=== PATIENT | male | born 1990 | race Hispanic/Latino ===

== ENCOUNTER 2025-06-27 11:24 | Emergency (ER) | payer OTHER ==
--- NOTE | 2025-06-27 11:41 | EDPHYS ---
Physician Documentation [facility] Name: Jassi Hernandez Age: 35 yrs Sex: Male : 1990 Arrival Date: 06/27/2025 Time: 11:24 Bed DIS1 Private MD: ED Physician Mykel Malik HPI: 06/27 12:28 This 35 yrs old Male presents to ER via Ambulatory with complaints of Rash, Eye Problem.kb 12:28 Patient is a 35-year-old male who presents for rash to the face and chest that kb developed overnight. States he was working under a house yesterday and believes he came into contact with something. Son that was working with him under the house has similar rash. Complains of itching.. Historical: - Allergies: 11:39 No Known Allergies; ll1 - PMHx: 11:39 None; ll1 - PSHx: 11:39 None; ll1 - Immunization history:: Adult Immunizations up to date. - Infectious Disease History:: Denies. - Social history:: Smoking status: Patient denies any tobacco usage or history of. ROS: 12:27 Constitutional: As per HPI kb Exam: 12:27 Constitutional: This is a well developed, well nourished patient who is awake, alert, kb and in no acute distress. Head/Face: Normocephalic, atraumatic. ENT: Moist Mucous membranes Cardiovascular: Regular rate Respiratory: Respirations even and unlabored. No increased work of breathing. Talking in full sentences MS/ Extremity: Pulses equal, no cyanosis. Neurovascular intact. Full, normal range of motion. Neuro: Awake and alert, GCS 15, oriented to person, place, time, and situation. 12:27 Skin: rash a moderate rash is noted, consistent with contact dermatitis, on the face and chest, Vital Signs: 11:39 BP 137 / 87; Pulse 66; Resp 16; Temp 97.8; Pulse Ox 100% ; Weight 81.65 kg; Height 5 ll1 ft. 8 in. ; Pain 9/10; 13:10 BP 136 / 84; Pulse 67; Resp 16; Pulse Ox 99% on R/A; db 11:39 Body Mass Index 27.37 (81.65 kg, 172.72 cm) ll1 11:39 Pain Scale: Adult ll1 MDM: 11:31 Medical Screening Exam initiated kb 12:29 Differential diagnosis: impetigo, allergic reaction, parasite infection. Data reviewed: kb vital signs, nurses notes. Historians other than the Patient: Spouse/Significant Other: . Counseling: I had a detailed discussion with the patient and/or guardian regarding the historical points, exam findings, and any diagnostic results supporting the discharge/admit diagnosis, the need for outpatient follow up, a family practitioner, to return to the emergency department if symptoms worsen or persist or if there are any questions or concerns that arise at home. Administered Medications: 12:55 Drug: diphenhydrAMINE PO 25 mg PO once Route: PO; db 13:09 Follow up: Response: No adverse reaction db 13:00 Drug: predniSONE PO 40 mg PO once Route: PO; db 13:09 Follow up: Response: No adverse reaction db 13:00 Drug: Famotidine PO 20 mg PO once Route: PO; db 13:09 Follow up: Response: No adverse reaction db Disposition: 06/28 07:34 Co-signature as Attending Physician, Mykel Malik MD I agree with the assessment and gale plan of care. Disposition Summary: 06/27/25 11:40 Discharge Ordered Notes: Location: Home kb Condition: Stable kb Diagnosis - Allergic contact dermatitis, unspecified cause kb Followup: kb - With: Emergency Department - When: As needed - Reason: Worsening of condition Followup: kb - With: Private Physician - When: 2 - 3 days - Reason: Recheck today's complaints, Continuance of care, Re-evaluation by your physician Discharge Instructions: - Discharge Summary Sheet kb - Contact Dermatitis, [id number] kb Forms: - Medication Reconciliation Form kb - Antibiotic Education kb - Prescription Opioid Use kb - Patient Portal Instructions kb - Leadership Thank You Letter kb Prescriptions: - Pepcid 20 mg Oral Tablet - take 1 tablet ORAL route every 12 hours for 5 days; 10 tablet; Refills: 0, kb Product Selection Permitted - Prednisone 20 mg Oral Tablet - take 1 tablet ORAL route once daily for 5 days; 5 tablet; Refills: 0, Product kb Selection Permitted Signatures: Dari Nash FNP-C FNP-Ckb Anderson, Corey, MD MD cha Lewis, Lynsay RN RN ll1 Blessing Small RN RN db
--- NOTE | 2025-06-27 11:41 | ER ---
Nurse's Notes [facility] Name: Jassi Hernandez Age: 35 yrs Sex: Male : 1990 Arrival Date: 06/27/2025 Time: 11:24 Bed DIS1 Private MD: Diagnosis: Allergic contact dermatitis, unspecified cause Presentation: 06/27 11:39 Chief complaint: Patient states: Rash with itching to eyes and face. 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 Coronavirus screen: Client denies travel out of the [place] in the last 14 days. At this time, the client does not indicate any symptoms associated with coronavirus-19. Ebola Screen: Patient denies travel to an Ebola-affected area in the 21 days before illness onset. Initial Sepsis Screen: Does the patient meet any 2 criteria? No. Patient's initial sepsis screen is negative. Does the patient have a suspected source of infection? No. Patient's initial sepsis screen is negative. Risk Assessment: Do you want to hurt yourself or someone else? Patient reports no desire to harm self or others. Onset of symptoms was June 27, 2025. 11:39 Method Of Arrival: Ambulatory ll1 11:39 Acuity: POLA 3 ll1 Historical: - Allergies: 11:39 No Known Allergies; ll1 - PMHx: 11:39 None; ll1 - PSHx: 11:39 None; ll1 - Immunization history:: Adult Immunizations up to date. - Infectious Disease History:: Denies. - Social history:: Smoking status: Patient denies any tobacco usage or history of. Screenin:10 [facility] ED Fall Risk Assessment (Adult) History of falling in the last 3 months, db including since admission No falls in past 3 months (0 pts) Confusion or Disorientation No (0 pts) Intoxicated or Sedated No (0 pts) Impaired Gait No (0 pts) Mobility Assist Device Used No (0 pt) Altered Elimination No (0 pt) Score/Fall Risk Level 0 - 2 = Low Risk Oriented to surroundings, Maintained a safe environment. Abuse screen: Denies threats or abuse. Denies injuries from another. Nutritional screening: No deficits noted. Tuberculosis screening: No symptoms or risk factors identified. Assessment: 13:10 Reassessment: Patient appears in no apparent distress at this time. Patient and/or db family updated on plan of care and expected duration. Pain level reassessed. Patient is alert, oriented x 3, equal unlabored respirations, skin warm/dry/pink. General: Appears in no apparent distress. comfortable, Behavior is calm, cooperative. Pain: Denies pain. Neuro: Level of Consciousness is awake, alert, obeys commands, Oriented to person, place, time, situation. Respiratory: Airway is patent Respiratory effort is even, unlabored, Respiratory pattern is regular, symmetrical. Vital Signs: 11:39 BP 137 / 87; Pulse 66; Resp 16; Temp 97.8; Pulse Ox 100% ; Weight 81.65 kg; Height 5 ll1 ft. 8 in. ; Pain 9/10; 13:10 BP 136 / 84; Pulse 67; Resp 16; Pulse Ox 99% on R/A; db 11:39 Body Mass Index 27.37 (81.65 kg, 172.72 cm) ll1 11:39 Pain Scale: Adult ll1 ED Course: 11:30 Patient arrived in ED. im 11:31 Dari Nash FNP-C is PHCP. kb 11:31 Mykel Malik MD is Attending Physician. kb 11:40 Triage completed. ll1 12:40 Agnes Santana, ZOEY is Primary Nurse. cc6 13:10 No provider procedures requiring assistance completed. Patient did not have IV access db during this emergency room visit. 13:10 Patient has correct armband on for positive identification. Provided Education on: db DISCHARGE AND PRESCRIPTIONS . 13:11 Arm band placed on. db Administered Medications: 12:55 Drug: diphenhydrAMINE PO 25 mg PO once Route: PO; db 13:09 Follow up: Response: No adverse reaction db 13:00 Drug: predniSONE PO 40 mg PO once Route: PO; db 13:09 Follow up: Response: No adverse reaction db 13:00 Drug: Famotidine PO 20 mg PO once Route: PO; db 13:09 Follow up: Response: No adverse reaction db Medication: 13:10 VIS not applicable for this client. db Outcome: 11:40 Discharge ordered by . kb 13:10 Discharged to home ambulatory, with family, db 13:10 Condition: stable 13:10 Discharge instructions given to patient, family, Instructed on discharge instructions, follow up and referral plans. Prescriptions given X 2, 13:12 Patient left the ED. db Signatures: Dari Nash, TIMA PALOMO-Skylar Davies RN RN ll1 Blessing Small RN RN db Dorothea Serrato Cassandra RN RN cc6
[2025-06-27] MEDS ORDERED: predniSONE 20 MG TAB ONE (12:44)
[2025-06-27] MEDS ORDERED: DIPHENHYDRAMINE 25 MG TAB/CAP ONE (12:44)
[2025-06-27] MEDS ORDERED: FAMOTIDINE 20 MG TAB ONE (12:44)
[2025-06-27 13:20] VITALS: TEMP 97.8
[2025-06-27 13:21] VITALS: BP 136/84; O2SAT 99
== END 2025-06-27 13:12 | disposition home or self-care (01) ==
LOC: ER 11:24
DX: L23.9 Allergic contact dermatitis, unspecified cause (principal)
CPT/HCPCS: 99283; J7512